=== PATIENT | male | born 1970 | race Caucasian/White ===

== ENCOUNTER 2019-07-07 14:56 | Inpatient (IN) | payer MEDICARE, MEDICAID ==
[~2019-07-07] VITALS: Ht 175.3 cm; Wt 147.6 kg
[2019-07-07 18:00] VITALS: BP 117/67
[2019-07-07] MEDS ORDERED: potassium Cl 20 mEq SR tablet PO PRN ×2 (18:15)
[2019-07-07] MEDS ORDERED: potassium Cl 20mEq/100mL bag 100 ML IV PRN ×2 (18:15)
[2019-07-07] MEDS ORDERED: potassium CL 10mEq/100ml bag 100 ML IV PRN ×2 (18:15)
[2019-07-07] MEDS ORDERED: midazolam 2 mg/2 ml injection IV ONE (18:15)
[2019-07-07] MEDS ORDERED: bisacodyl 10mg suppository rectal RC PRN (18:15)
[2019-07-07] MEDS: propofol 1000mg/100ml bottle 100 ML IV SCH (18:15)
[2019-07-07] MEDS ORDERED: ipratropium/albuterol 3ml nebule NEB PRN (18:15)
--- NOTE | 2019-07-07 18:20 | NUR ---
Patient in room CICU 2013. I have received report from Mg MERA and had the opportunity to ask questions and assume patient care. Patient recently arrived via [facility] and currently getting settled into room. Dr Rivera at bedside. New orders currently being reviewed. Will continue to monitor patient.
--- NOTE | 2019-07-07 18:27 | NUR ---
Problems reprioritized. Patient report given, questions answered & plan of care reviewed with Alma MERA.
[2019-07-07 18:51] LABS: ABG BASE EXCESS 4.2 mmol/L (-2.0-3.0); ABG HCO3 33.3 mmol/L (22.0-26.0); ABG OXYGEN SATURATION 95.3 % (95-98); ABG PH (T) 7.274 (7.350-7.450); FCOHb 0.2 % (0.5-1.5); FMetHb 0.5 % (0.3-1.12); FO2Hb 94.6 % (94-100); MINUTE VOLUME 9 L/min; PATIENT TEMPERATURE 37.7; PEEP 5 cm H2O; RESPIRATORY RATE 18 b/min; RESPIRATORY RATE (OBSERVED) 20 b/min; TIDAL VOLUME 450 mL
[2019-07-07 19:00] VITALS: BP 117/54
[2019-07-07] MEDS: CefTRIAXone 2gm/D5W 50ml 50 ML IV SCH (19:06)
[2019-07-07] MEDS: normal saline 1000ml 1,000 ML IV SCH (19:12)
[2019-07-07] MEDS: midazolam 100mg in NS 100ml 100 ML IV PRN (19:13)
[2019-07-07 19:18] LABS: BASOPHILS # (AUTO) 0.1 X10'3 (0-0.2); EOSINOPHILS % (AUTO) 0.3 % (0-6); HEMATOCRIT 38.9 % (42.0-52.0); HEMOGLOBIN 13.2 g/dl (14.0-17.9); LYMPHOCYTES # (AUTO) 0.7 X10'3 (1.1-4.8); LYMPHOCYTES % (AUTO) 5.7 % (21-51); MEAN CORPUSCULAR HEMOGLOBIN 30.8 PG (27.0-31.0); MEAN CORPUSCULAR HGB CONC 33.9 g/dL (33.0-36.5); MEAN CORPUSCULAR VOLUME 90.7 FL (78-98); MEAN PLATELET VOLUME 7.6 FL (7.4-10.4); MONOCYTES # (AUTO) 0.9 X10'3 (0-0.9); MONOCYTES % (AUTO) 6.7 % (2-12); NEUTROPHILS # (AUTO) 11.1 X10'3 (1.8-7.7); NEUTROPHILS % (AUTO) 86.3 % (42-75); PLATELET COUNT 300 X10'3 (140-440); RED BLOOD COUNT 4.29 X10'6 (4.70-6.10); RED CELL DISTRIBUTION WIDTH 14.1 % (11.5-14.5); WHITE BLOOD COUNT 12.8 X10'3 (4.5-11.0)
[2019-07-07] MEDS: FENTANYL-0.9 % NACL/PF 100 ML IV PRN (19:19)
[2019-07-07] MEDS ORDERED: LISI-600 PO (19:26)
[2019-07-07] MEDS ORDERED: METF500T PO (19:26)
[2019-07-07] MEDS ORDERED: HCTZ25T PO (19:26)
[2019-07-07] MEDS ORDERED: FLO0.4C PO (19:26)
[2019-07-07] MEDS ORDERED: TEST200V10 IM (19:26)
[2019-07-07] MEDS ORDERED: LIOT25TA6 PO (19:26)
[2019-07-07] MEDS ORDERED: SIMV-42 PO (19:26)
[2019-07-07] MEDS ORDERED: BECL7.3A INH (19:26)
[2019-07-07] MEDS ORDERED: METO1TAB25 PO (19:26)
[2019-07-07] MEDS ORDERED: SYN0.088T PO (19:26)
[2019-07-07 19:37] LABS: ALANINE AMINOTRANSFERASE 59 U/L (12-78); ALBUMIN/GLOBULIN RATIO 0.8 (1.1-1.5); ALKALINE PHOSPHATASE 89 IU/L (46-116); ANION GAP 5 (8-16); ASPARTATE AMINO TRANSFERASE 70 U/L (10-37); BILIRUBIN,TOTAL 0.5 MG/DL (0.1-1.0); BLOOD UREA NITROGEN 53 MG/DL (7-18); BUN/CREATININE RATIO 34.6 (5.4-32.0); CALCIUM 8.4 MG/DL (8.5-10.1); CHLORIDE 100 MMOL/L (99-107); CREATININE 1.53 MG/DL (0.60-1.10); GLUCOSE 317 MG/DL (70-104); MAGNESIUM 3.2 MG/DL (1.5-2.4); PHOSPHORUS 7.3 MG/DL (2.3-4.5); POTASSIUM 5.5 MMOL/L (3.5-5.1); SODIUM 140 MMOL/L (135-145); TOTAL CARBON DIOXIDE 35.1 MMOL/L (24-32); TOTAL PROTEIN 6.9 G/DL (6.4-8.2); TRIGLYCERIDES 561 MG/DL (20-135); eGFR 49 ML/MIN
[2019-07-07] MEDS ORDERED: iohexol 350MG/ML 100ml bottle IV ONE (19:41)
[2019-07-07 20:00] VITALS: BP 140/74
[2019-07-07] MEDS ORDERED: docusate sod 100mg capsule PO SCH (20:00)
--- NOTE | 2019-07-07 20:00 | NUR ---
Patient to CT with two RN's and RT. Patient monitored closely during procedure and back to room. Will continue to monitor.
[2019-07-07] MEDS: azithromycin/NS 500mg/250ml 250 ML IV SCH (20:41)
[2019-07-07] MEDS: famotidine/PF 10 mg/ml inj IV SCH (20:48)
[2019-07-07] MEDS: methylPREDNISolone sod succ 125mg/2ml vial IV SCH (20:48)
[2019-07-07] MEDS: ipratropium/albuterol 3ml nebule NEB SCH ×2 (20:55→22:51)
[2019-07-07 21:00] VITALS: BP 131/78
--- NOTE | 2019-07-07 21:00 | NUR ---
William Mcclellan PASSENGER TRAIN BRAKER at bedside, updated on current labs and color of GI output. No new orders at this time. Will continue to monitor.
[2019-07-07 21:19] LABS: TOTAL CELLS COUNTED 100
[2019-07-07 21:20] LABS: PLATELET ESTIMATE NORMAL
[2019-07-07] MEDS ORDERED: dextrose 50%-water 50ml dispensing syringe IV PRN ×2 (21:30)
[2019-07-07] MEDS ORDERED: insulin Lispro (HumaLOG) vial - multi-dose SQ SCH (21:30)
[2019-07-07] MEDS ORDERED: dextrose ORAL solution 15 GM/59 ML bottle PO PRN ×2 (21:30)
[2019-07-07] MEDS ORDERED: glucagon, human recombinant 1mg kit SUBCUT PRN (21:30)
[2019-07-07] MEDS: heparin, porcine 5000 units/ml vial SQ SCH (21:40)
[2019-07-07] MEDS: sennosides/docusate sodium tablet PO SCH (21:40)
[2019-07-07] MEDS: docusate sodium 100mg/10ml UD cup PO SCH (21:40)
[2019-07-07] MEDS: insulin regular, human vial - multi-dose SQ SCH (21:58)
[2019-07-07 22:00] VITALS: BP 132/66
[2019-07-07] MEDS: insulin glargine (Lantus) pen - multi-dose SQ SCH (22:00)
[2019-07-07 22:11] LABS: CLARITY,URINE CLOUDY (Clear); COLOR,URINE YELLOW (Yellow); GLUCOSE, URINE NEGATIVE (Neg); KETONES,URINE NEGATIVE (Neg); LEUKOCYTE ESTERASE ,URINE NEGATIVE (Neg); NITRITES, URINE NEGATIVE (Neg); OCCULT BLOOD,URINE LARGE (Neg); PROTEIN,URINE TRACE mg/dl (Neg); UROBILINOGEN,URINE 0.2 E.U/dL (0.2-1.0)
[2019-07-07 22:18] LABS: UA COLLECTION TYPE FOLEY CATH
[2019-07-07 22:19] LABS: BACTERIA,URINE NONE SEEN /HPF (Neg); RBC,URINE 50-100 /HPF (0-2); WBC,URINE 0-4 /HPF (0-4)
[2019-07-07 22:20] LABS: MUCUS STRANDS FEW /LPF (Neg); SQUAMOUS EPITHELIAL CELL,UR FEW /LPF (FEW); URIC ACID CRYSTALS 4+ /HPF (NEGATIVE)
[2019-07-07 22:28] LABS: HEMOGLOBIN A1C 7.8 % (4.5-6.2)
[2019-07-07 22:46] LABS: OXYGEN SATURATION (MIXED VEN) 83.9 % (60-80); PO2 MIXED VENOUS (TEMP COR) 52.6 mmHg (35-46)
[2019-07-07 23:00] VITALS: BP 136/67
[2019-07-08] VITALS (24 sets, daily range): BP systolic 111–148; BP diastolic 53–86
[2019-07-08] MEDS: methylPREDNISolone sod succ 125mg/2ml vial IV SCH ×4 (02:16→19:45)
[2019-07-08] MEDS: FENTANYL-0.9 % NACL/PF 100 ML IV PRN (02:17)
[2019-07-08] MEDS: insulin regular, human vial - multi-dose SQ SCH ×4 (02:19→20:22)
[2019-07-08 02:40] LABS: BASOPHILS # (AUTO) 0.2 X10'3 (0-0.2); BASOPHILS % (AUTO) 1.1 % (0-1); EOSINOPHILS % (AUTO) 0 % (0-6); HEMATOCRIT 39.5 % (42.0-52.0); HEMOGLOBIN 13.3 g/dl (14.0-17.9); LYMPHOCYTES # (AUTO) 0.5 X10'3 (1.1-4.8); LYMPHOCYTES % (AUTO) 2.2 % (21-51); MEAN CORPUSCULAR HEMOGLOBIN 30.4 PG (27.0-31.0); MEAN CORPUSCULAR HGB CONC 33.8 g/dL (33.0-36.5); MEAN PLATELET VOLUME 7.8 FL (7.4-10.4); MONOCYTES # (AUTO) 0.8 X10'3 (0-0.9); MONOCYTES % (AUTO) 3.6 % (2-12); NEUTROPHILS # (AUTO) 19.8 X10'3 (1.8-7.7); NEUTROPHILS % (AUTO) 93.1 % (42-75); PLATELET COUNT 261 X10'3 (140-440); RED BLOOD COUNT 4.39 X10'6 (4.70-6.10); RED CELL DISTRIBUTION WIDTH 14.4 % (11.5-14.5); WHITE BLOOD COUNT 21.3 X10'3 (4.5-11.0)
[2019-07-08 02:50] LABS: ALANINE AMINOTRANSFERASE 71 U/L (12-78); ALBUMIN 2.8 G/DL (3.4-5.0); ALBUMIN/GLOBULIN RATIO 0.8 (1.1-1.5); ALKALINE PHOSPHATASE 88 IU/L (46-116); ANION GAP 2 (8-16); ASPARTATE AMINO TRANSFERASE 82 U/L (10-37); BILIRUBIN,TOTAL 0.6 MG/DL (0.1-1.0); BLOOD UREA NITROGEN 50 MG/DL (7-18); BUN/CREATININE RATIO 38.8 (5.4-32.0); CALCIUM 8.2 MG/DL (8.5-10.1); CHLORIDE 102 MMOL/L (99-107); CREATININE 1.29 MG/DL (0.60-1.10); GLUCOSE 290 MG/DL (70-104); MAGNESIUM 2.9 MG/DL (1.5-2.4); PHOSPHORUS 4.7 MG/DL (2.3-4.5); POTASSIUM 5.6 MMOL/L (3.5-5.1); SODIUM 140 MMOL/L (135-145); TOTAL PROTEIN 6.5 G/DL (6.4-8.2); TRIGLYCERIDES 378 MG/DL (20-135); eGFR 60 ML/MIN
[2019-07-08] MEDS: ipratropium/albuterol 3ml nebule NEB SCH ×6 (03:14→23:18)
[2019-07-08] MEDS: midazolam 100mg in NS 100ml 100 ML IV PRN (03:17)
[2019-07-08 03:25] LABS: ABG BASE EXCESS 4.3 mmol/L (-2.0-3.0); ABG HCO3 31.2 mmol/L (22.0-26.0); ABG OXYGEN SATURATION 96.6 % (95-98); ABG PCO2 (T) 58.8 mmHg (35.0-45.0); ABG PH (T) 7.348 (7.350-7.450); ABG PO2 (T) 91.6 mmHg (83-108); ALLEN'S TEST Positive; FCOHb 0.8 % (0.5-1.5); FMetHb 0.2 % (0.3-1.12); FO2Hb 95.6 % (94-100); MINUTE VOLUME 10 L/min; PATIENT TEMPERATURE 38.1; PEEP 10 cm H2O; RESPIRATORY RATE 18 b/min; RESPIRATORY RATE (OBSERVED) 24 b/min; TIDAL VOLUME 450 mL; TOTAL HEMOGLOBIN 14.2 G/dl (14.0-17.9)
[2019-07-08 03:49] LABS: TOTAL CELLS COUNTED 100
[2019-07-08 03:51] LABS: PLATELET ESTIMATE NORMAL
[2019-07-08 03:52] LABS: ANISOCYTOSIS FEW; LARGE PLATELETS FEW; POLYCHROMASIA FEW
--- NOTE | 2019-07-08 06:18 | NUR ---
Problems reprioritized. Patient report given, questions answered & plan of care reviewed with Derrick MERA.
[2019-07-08] MEDS: docusate sodium 100mg/10ml UD cup PO SCH ×2 (07:33→19:45)
[2019-07-08] MEDS: azithromycin/NS 500mg/250ml 250 ML IV SCH (07:33)
[2019-07-08] MEDS: famotidine/PF 10 mg/ml inj IV SCH ×2 (07:37→19:45)
[2019-07-08] MEDS: heparin, porcine 5000 units/ml vial SQ SCH ×2 (07:37→19:44)
[2019-07-08] MEDS: normal saline 1000ml 1,000 ML IV SCH ×2 (07:40→20:55)
[2019-07-08 07:49] LABS: PARTIAL THROMBOPLASTIN TIME 25 SECONDS (22-32)
[2019-07-08] MEDS ORDERED: acetaminophen 325mg tablet PO PRN ×2 (08:00)
[2019-07-08] MEDS: acetaminophen 325mg tablet PO PRN ×3 (08:46→19:45)
[2019-07-08] MEDS: CefTRIAXone 2gm/D5W 50ml 50 ML IV SCH (08:49)
[2019-07-08] MEDS ORDERED: METO-384 PO (12:05)
[2019-07-08] MEDS ORDERED: LISI10TA4 PO (12:09)
[2019-07-08] MEDS ORDERED: LEVO125T8 PO (12:09)
[2019-07-08] MEDS ORDERED: HYDR25TA4 PO (12:10)
[2019-07-08] MEDS ORDERED: IPRA3AMP31 PO (12:12)
--- NOTE | 2019-07-08 12:24 | NUR ---
TF/DM consult: Pt admitted for acute and chronic respiratory failure and has hx of Sudheer's thyroiditis. Hx of meth and cannabinoids use, per MD note. Pt currently intubated and sedated. Pt HgbA1c 7.8, will need DM education on extubation when appropriate. Pt LBM 07/07. Pt TG currently 378, MD is aware, pending med rec. Pt is a transfer from [facility], where he received Glucerna at 45ml/hr, per RN. Per MD, TF to start today, recs below. Will continue to monitor. Recommendation: 1. Continuous Vital HP to start at 35ml/hr advance by 20ml q 8 hrs to goal rate of 115ml/hr, to provide total volume of 2760ml, 2760 calories, 242g protein and 2318ml water. 2. Water flush 200ml q 4 hrs 3. PALB q /; daily wts 4. Monitor TF tolerance 5. Routine bowel care 6. Diet advancement to Heart Healthy and Carb controlled diet as medically indicated once extubated Addendum: 07/08/19 at 1225 by Wing Jennifer MERAZ Amended: Links added. Addendum: 07/08/19 at [address] RD Approved
[2019-07-08] MEDS: propofol 1000mg/100ml bottle 100 ML IV SCH (13:08)
[2019-07-08] MEDS ORDERED: vancomycin/NS 1 GM ADD-VANTAGE 250 ML IV ONE (14:55)
--- NOTE | 2019-07-08 14:57 | NUR ---
Called Dr. Rivera to report critical positive blood culture from PICC line aerobic bottle gram + cocci in clusters, temp of 38.8 despite tylenol, received orders for 1 gram of vancomycin now. Also received order to pull PICC line and have new PICC line placed, paged PICC Nurse. Also discussed patient in atrial fibrillation in the 130-150s when agitated, requested rate control medication of amiodarone or cardizem, states not at this time, use sedation. Discussed if wants precedex and he stated no keep versed and Fentanyl at this time. Will continue to monitor.
--- NOTE | 2019-07-08 18:30 | NUR ---
Patient in room CICU 2013. I have received report from Maria and had the opportunity to ask questions and assume patient care.
--- NOTE | 2019-07-08 18:39 | NUR ---
Problems reprioritized. Patient report given, questions answered & plan of care reviewed with Alma MERA.
[2019-07-08] MEDS: TESTOSTERONE CYPIONATE 200 MG/ML VIAL IM SCH (18:52)
[2019-07-08] MEDS: lactobacillus rhamnosus 10,000 MMU CELLS/CAPSULE PO SCH (19:44)
[2019-07-08] MEDS: sennosides/docusate sodium tablet PO SCH (20:15)
[2019-07-08] MEDS: insulin glargine (Lantus) pen - multi-dose SQ SCH (20:19)
[2019-07-08] MEDS: mineral oil/petrolatum ophthal oint EACHEYE SCH (20:20)
[2019-07-08] MEDS ORDERED: atorvastatin 10mg tablet PO SCH (21:00)
[2019-07-08] MEDS: budesonide 0.5mg/2ml UD nebule IH SCH (23:18)
[2019-07-09] VITALS (24 sets, daily range): BP systolic 114–168; BP diastolic 47–97
[2019-07-09] MEDS ORDERED: metoprolol tartrate 1mg/ml inj IV ONE ×2 (00:40→04:25)
--- NOTE | 2019-07-09 00:45 | NUR ---
William Mcclellan APRN notified of patient increased HR up to 156 A Fib. TORBV for Metoprolol 5mg IV Now, repeat in 15 min if patient HR does not sustain in the 120's or below.
[2019-07-09] MEDS: mineral oil/petrolatum ophthal oint EACHEYE SCH ×4 (01:54→20:00)
[2019-07-09] MEDS: midazolam 100mg in NS 100ml 100 ML IV PRN (01:55)
[2019-07-09] MEDS: methylPREDNISolone sod succ 125mg/2ml vial IV SCH ×4 (01:55→20:29)
[2019-07-09] MEDS: insulin regular, human vial - multi-dose SQ SCH ×4 (02:11→20:35)
[2019-07-09 02:26] LABS: BASOPHILS % (AUTO) 0 % (0-1); EOSINOPHILS % (AUTO) 0 % (0-6); HEMATOCRIT 36.4 % (42.0-52.0); HEMOGLOBIN 12.3 g/dl (14.0-17.9); LYMPHOCYTES # (AUTO) 0.7 X10'3 (1.1-4.8); LYMPHOCYTES % (AUTO) 7.7 % (21-51); MEAN CORPUSCULAR HGB CONC 33.9 g/dL (33.0-36.5); MEAN CORPUSCULAR VOLUME 91.5 FL (78-98); MEAN PLATELET VOLUME 7.8 FL (7.4-10.4); MONOCYTES # (AUTO) 0.4 X10'3 (0-0.9); MONOCYTES % (AUTO) 4.5 % (2-12); NEUTROPHILS # (AUTO) 8.5 X10'3 (1.8-7.7); NEUTROPHILS % (AUTO) 87.8 % (42-75); PLATELET COUNT 227 X10'3 (140-440); RED BLOOD COUNT 3.98 X10'6 (4.70-6.10); RED CELL DISTRIBUTION WIDTH 14.1 % (11.5-14.5); WHITE BLOOD COUNT 9.7 X10'3 (4.5-11.0)
[2019-07-09 02:51] LABS: ALANINE AMINOTRANSFERASE 73 U/L (12-78); ALBUMIN 2.5 G/DL (3.4-5.0); ALBUMIN/GLOBULIN RATIO 0.7 (1.1-1.5); ALKALINE PHOSPHATASE 73 IU/L (46-116); ANION GAP 2 (8-16); ASPARTATE AMINO TRANSFERASE 75 U/L (10-37); BILIRUBIN,TOTAL 0.5 MG/DL (0.1-1.0); BLOOD UREA NITROGEN 47 MG/DL (7-18); BUN/CREATININE RATIO 37.3 (5.4-32.0); CALCIUM 8.4 MG/DL (8.5-10.1); CHLORIDE 106 MMOL/L (99-107); CREATININE 1.26 MG/DL (0.60-1.10); GLUCOSE 316 MG/DL (70-104); PHOSPHORUS 2.9 MG/DL (2.3-4.5); POTASSIUM 4.9 MMOL/L (3.5-5.1); SODIUM 142 MMOL/L (135-145); TOTAL CARBON DIOXIDE 33.7 MMOL/L (24-32); eGFR 62 ML/MIN
[2019-07-09 03:14] LABS: TOTAL CELLS COUNTED 100
[2019-07-09 03:15] LABS: PLATELET ESTIMATE NORMAL
[2019-07-09] MEDS: ipratropium/albuterol 3ml nebule NEB SCH ×5 (03:39→19:46)
[2019-07-09] MEDS: FENTANYL-0.9 % NACL/PF 100 ML IV PRN (03:52)
[2019-07-09 03:56] LABS: ABG BASE EXCESS 4.7 mmol/L (-2.0-3.0); ABG HCO3 31.2 mmol/L (22.0-26.0); ABG OXYGEN SATURATION 93.2 % (95-98); ABG PH (T) 7.355 (7.350-7.450); ABG PO2 (T) 76.4 mmHg (83-108); ALLEN'S TEST Positive; FCOHb 0.8 % (0.5-1.5); FMetHb 0.2 % (0.3-1.12); FO2Hb 92.3 % (94-100); MINUTE VOLUME 10 L/min; PATIENT TEMPERATURE 38.4; PEEP 5 cm H2O; RESPIRATORY RATE 18 b/min; RESPIRATORY RATE (OBSERVED) 19 b/min; TIDAL VOLUME 450 mL; TOTAL HEMOGLOBIN 13.5 G/dl (14.0-17.9)
[2019-07-09] MEDS: acetaminophen 325mg tablet PO PRN (04:00)
--- NOTE | 2019-07-09 04:21 | NUR ---
This RN called and spoke with William Mcclellan APRN concerned about pt HR 135 to 150's. TORBV FOR 5 MG METOPROLOL IV PUSH NOW.
--- NOTE | 2019-07-09 05:45 | NUR ---
Patient having frequent coughing, Alma MERA noticed ET tube 20 at the lip. Pt has apparently coughed his tube out, respiratory therapy notified. Respiratory Therapy in pt room.
--- NOTE | 2019-07-09 05:49 | NUR ---
Respiratory Therapy to pt room advanced ET tube to 24 at the gum line.
--- NOTE | 2019-07-09 06:38 | NUR ---
Care assumed. Handoff received by out going RN. Midazolam infusion handed off at 8ml/hr but found to be infusing at 7mls/hr. Pt VSS with RASS-3. Will continue to monitor.
[2019-07-09] MEDS: budesonide 0.5mg/2ml UD nebule IH SCH ×2 (07:19→19:46)
[2019-07-09] MEDS ORDERED: LIOthyronine 25mcg tablet PO SCH (08:00)
[2019-07-09] MEDS ORDERED: ipratropium/albuterol 3ml nebule IH SCH (08:00)
[2019-07-09] MEDS ORDERED: metoprolol succinate 25mg (24-HOUR) SR. Tablet PO SCH (08:00)
[2019-07-09] MEDS ORDERED: levoTHYROXINE 125mcg tablet PO SCH (08:00)
[2019-07-09] MEDS: propofol 1000mg/100ml bottle 100 ML IV SCH (08:21)
[2019-07-09] MEDS: famotidine/PF 10 mg/ml inj IV SCH ×2 (08:37→20:29)
[2019-07-09] MEDS: heparin, porcine 5000 units/ml vial SQ SCH ×2 (08:39→20:30)
[2019-07-09] MEDS: docusate sodium 100mg/10ml UD cup PO SCH (08:40)
[2019-07-09] MEDS: CefTRIAXone 2gm/D5W 50ml 50 ML IV SCH (08:40)
[2019-07-09] MEDS: tamsulosin 0.4mg capsule PO SCH (08:40)
[2019-07-09] MEDS: azithromycin/NS 500mg/250ml 250 ML IV SCH (08:41)
[2019-07-09] MEDS: normal saline 1000ml 1,000 ML IV SCH ×2 (08:43→22:32)
[2019-07-09] MEDS: lactobacillus rhamnosus 10,000 MMU CELLS/CAPSULE PO SCH ×2 (08:52→20:29)
[2019-07-09] MEDS ORDERED: metoprolol tartrate 25mg tablet PO SCH (11:11)
[2019-07-09] MEDS ORDERED: acetaminophen 325mg tablet OGT PRN ×3 (11:19→11:20)
[2019-07-09] MEDS ORDERED: dextrose ORAL solution 15 GM/59 ML bottle OGT PRN ×2 (11:20→11:21)
[2019-07-09] MEDS ORDERED: potassium Cl 20 mEq SR tablet OGT PRN ×2 (11:23)
[2019-07-09] MEDS ORDERED: racepinephrine 11.25mg/0.5ml nebule NEB PRN (14:40)
[2019-07-09] MEDS ORDERED: ipratropium/albuterol 3ml nebule NEB PRN (14:40)
--- NOTE | 2019-07-09 15:47 | NUR ---
Pt extubated at 1520 per MD Rivera orders. Pt passed weaning parameters of RSBI 38 and NIF -24 and VC 800. Pt following commands. Upon extubation, pt HRs 150-160s(MD aware on pt HRs and no change from pre extubation), RR 27 and SpO2 84% on 6L NC, attempted to place partial rebreather on pt and he became verbally abusive and combative and hit mask away from nurse. Placed back on 6L NC with sats in 86. RT brought to bedside.Pt remains alert and requesting to speak with . called twice and message left for . Will continue to monitor closely.
--- NOTE | 2019-07-09 16:26 | NUR ---
arrived to bedside. Pt amendable to partial rebreather. Sats 95%, HR remains 150s, BPs 140s/80s. Pt more cooperative with present. Will continue to monitor closely.
--- NOTE | 2019-07-09 16:59 | NUR ---
MD madden brought to bedside and aware of HR in the 150s. Addendum: 07/09/19 at 1702 by Nicholas Jung RN Amended: Links added.
--- NOTE | 2019-07-09 19:00 | NUR ---
sr technical sales consultant present at bedside Addendum: 07/09/19 at 1927 by Mindi Cooper RN error wrong pt entry
--- NOTE | 2019-07-09 19:19 | NUR ---
Patient in room ICU 2042. I have received report and had the opportunity to ask questions and assume patient care.
--- NOTE | 2019-07-09 19:27 | NUR ---
josé miguel quevedo use of home cpap.
--- NOTE | 2019-07-09 20:00 | NUR ---
josé miguel francisco aware of pt heart rate being in the 140s-160's. pt is asymptomatic at this time. no new orders received
[2019-07-09] MEDS: sennosides/docusate sodium tablet OGT SCH (20:28)
[2019-07-09] MEDS: metoprolol tartrate 25mg tablet OGT SCH (20:28)
[2019-07-09] MEDS: docusate sodium 100mg/10ml UD cup OGT SCH (20:29)
[2019-07-09] MEDS: atorvastatin 10mg tablet OGT SCH (20:29)
--- NOTE | 2019-07-09 20:30 | NUR ---
pt tolerating ice chips and water, pt given evening medications. pt tolerated swallowing po meds well will continue to monitor.
[2019-07-09] MEDS: insulin glargine (Lantus) pen - multi-dose SQ SCH (20:36)
[2019-07-09] MEDS: ondansetron/PF 4mg/2ml inj IV PRN (22:41)
--- NOTE | 2019-07-09 23:04 | NUR ---
pt requested more water. pt instructed to take small slow sips. pt disregarded instructions and reported nausea saying "i'm about to vomit". pt removed from bipap. and placed back on home cpap. zofran administered iv. pt does not have the physical ability to remove bipap by himself at this time if vomiting occurs. will be giving pt oral swabs to wet mouth if pt requests instead of water. will continue to monitor.
[2019-07-10] VITALS (24 sets, daily range): BP systolic 114–160; BP diastolic 59–110
[2019-07-10] MEDS: mineral oil/petrolatum ophthal oint EACHEYE SCH ×4 (00:54→20:20)
--- NOTE | 2019-07-10 01:08 | NUR ---
pt heart rate remains in the 130-150 range. pt has had the bipap on and his 02 sat is between 93-95% and the pt heart rate has not corrected. pt is asymptomatic at this time. josé miguel francisco notified. no changes or new orders received
[2019-07-10] MEDS: methylPREDNISolone sod succ 125mg/2ml vial IV SCH ×4 (01:41→20:19)
[2019-07-10] MEDS: insulin Lispro (HumaLOG) vial - multi-dose SQ SCH ×3 (02:10→19:37)
--- NOTE | 2019-07-10 02:15 | NUR ---
pt is engaging in staff splitting and manipulating behavior. pt continues to ask for water. pt given mouth swabs due to reporting nausea after the last water intake. pt is on bipap and is unable to remove the mask if vomiting occurs. pt educated on the aspiration risks and verbalizes understanding. pt then asks for water and was re-educated. pt then says "well if i don't get water i'm going to throw up." pt offered mouth swabs again and refused.
[2019-07-10] MEDS: ipratropium/albuterol 3ml nebule NEB SCH ×4 (02:58→20:44)
[2019-07-10] MEDS: propofol 1000mg/100ml bottle 100 ML IV SCH ×2 (03:34→22:47)
[2019-07-10] MEDS ORDERED: proCHLORperazine 10 MG/2 ml inj IV ONE (03:40)
--- NOTE | 2019-07-10 03:50 | NUR ---
pt continues to ask staff for water and saying he is going to vomit. md aware. compazine ordered and administered per order
[2019-07-10 05:00] LABS: BASOPHILS % (AUTO) 0.1 % (0-1); EOSINOPHILS % (AUTO) 0 % (0-6); HEMATOCRIT 39.9 % (42.0-52.0); HEMOGLOBIN 13.6 g/dl (14.0-17.9); LYMPHOCYTES # (AUTO) 0.9 X10'3 (1.1-4.8); LYMPHOCYTES % (AUTO) 6.9 % (21-51); MEAN CORPUSCULAR HEMOGLOBIN 30.8 PG (27.0-31.0); MEAN CORPUSCULAR VOLUME 90.5 FL (78-98); MONOCYTES # (AUTO) 0.5 X10'3 (0-0.9); MONOCYTES % (AUTO) 3.8 % (2-12); NEUTROPHILS # (AUTO) 11.9 X10'3 (1.8-7.7); NEUTROPHILS % (AUTO) 89.2 % (42-75); PLATELET COUNT 211 X10'3 (140-440); RED BLOOD COUNT 4.41 X10'6 (4.70-6.10); RED CELL DISTRIBUTION WIDTH 14.3 % (11.5-14.5); WHITE BLOOD COUNT 13.4 X10'3 (4.5-11.0)
[2019-07-10 05:14] LABS: ALANINE AMINOTRANSFERASE 219 U/L (12-78); ALBUMIN/GLOBULIN RATIO 0.8 (1.1-1.5); ALKALINE PHOSPHATASE 80 IU/L (46-116); ANION GAP 6 (8-16); ASPARTATE AMINO TRANSFERASE 190 U/L (10-37); BILIRUBIN,TOTAL 0.9 MG/DL (0.1-1.0); BLOOD UREA NITROGEN 47 MG/DL (7-18); BUN/CREATININE RATIO 41.6 (5.4-32.0); CALCIUM 8.8 MG/DL (8.5-10.1); CHLORIDE 103 MMOL/L (99-107); CREATININE 1.13 MG/DL (0.60-1.10); GLUCOSE 274 MG/DL (70-104); MAGNESIUM 2.6 MG/DL (1.5-2.4); PHOSPHORUS 4.4 MG/DL (2.3-4.5); SODIUM 142 MMOL/L (135-145); TOTAL CARBON DIOXIDE 33.2 MMOL/L (24-32); TOTAL PROTEIN 6.7 G/DL (6.4-8.2); eGFR 70 ML/MIN
--- NOTE | 2019-07-10 06:00 | NUR ---
Patient in room ICU 2042. I have received report from Yonatan MERA and had the opportunity to ask questions and assume patient care.
[2019-07-10 06:08] LABS: PREALBUMIN 51.3 MG/DL (19-36)
[2019-07-10 06:52] LABS: TOTAL CELLS COUNTED 100
[2019-07-10 06:57] LABS: PLATELET ESTIMATE NORMAL
[2019-07-10] MEDS: budesonide 0.5mg/2ml UD nebule IH SCH ×2 (07:39→20:44)
[2019-07-10] MEDS: famotidine/PF 10 mg/ml inj IV SCH ×2 (08:59→20:20)
[2019-07-10] MEDS: heparin, porcine 5000 units/ml vial SQ SCH ×2 (09:07→20:20)
[2019-07-10] MEDS: tamsulosin 0.4mg capsule PO SCH ×2 (09:22→09:25)
[2019-07-10] MEDS: levoTHYROXINE 125mcg tablet OGT SCH (09:23)
[2019-07-10] MEDS: lactobacillus rhamnosus 10,000 MMU CELLS/CAPSULE PO SCH ×2 (09:24→20:20)
[2019-07-10] MEDS: metoprolol tartrate 25mg tablet OGT SCH (09:24)
[2019-07-10] MEDS: docusate sodium 100mg/10ml UD cup OGT SCH ×2 (09:25→20:20)
[2019-07-10] MEDS: ondansetron/PF 4mg/2ml inj IV PRN ×3 (09:58→17:06)
[2019-07-10] MEDS: fentaNYL/PF 50MCG/1 ML 2ML syringe IV PRN ×2 (09:59→18:55)
[2019-07-10] MEDS: LIOthyronine 25mcg tablet OGT SCH (10:32)
--- NOTE | 2019-07-10 11:51 | NUR ---
F/u: Pt extubated 07/09 pending SP BSS for diet advancement. LBM 07/07 small and previously tolerating TF as advancing to goal at 75ml/hr. First PALB 51.3 likely error given pt size, prior intubation, nutrition not at goal, and renal labs continuing to improve. TF/DM consult: Pt admitted for acute and chronic respiratory failure and has hx of Sudheer's thyroiditis. Hx of meth and cannabinoids use, per MD note. Pt currently intubated and sedated. Pt HgbA1c 7.8, will need DM education on extubation when appropriate. Pt LBM 07/07. Pt TG currently 378, MD is aware, pending med rec. Pt is a transfer from [facility], where he received Glucerna at 45ml/hr, per RN. Per MD, TF to start today, recs below. Will continue to monitor. Recommendation: 1. Diet advancement to Heart Healthy and Carb controlled diet as medically indicated 2. routine bowel care 3. wt per rx 4. DM ed once appropriate and stable prior to d/c Addendum: 07/10/19 at [address] Amended: Links added.
[2019-07-10] MEDS: normal saline 1000ml 1,000 ML IV SCH (12:42)
[2019-07-10] MEDS: metoprolol succinate 25mg (24-HOUR) SR. Tablet PO SCH (13:24)
--- NOTE | 2019-07-10 18:30 | NUR ---
I have received report and assumed care of pt. family at bedside, assessment complete.
--- NOTE | 2019-07-10 18:37 | NUR ---
Problems reprioritized. Patient report given, questions answered & plan of care reviewed with BG RN.
--- NOTE | 2019-07-10 20:05 | NUR ---
hs cares completed pt tolerated well. frequent turning to maintain skin integrity
[2019-07-10] MEDS: atorvastatin 10mg tablet OGT SCH (21:06)
[2019-07-10] MEDS: sennosides/docusate sodium tablet OGT SCH (21:06)
[2019-07-10] MEDS: insulin glargine (Lantus) pen - multi-dose SQ SCH (21:10)
[2019-07-10] MEDS ORDERED: VANCOMYCIN LEVEL IV ONE (23:30)
--- NOTE | 2019-07-10 23:55 | NUR ---
no changes in condition noted
[2019-07-11] VITALS (24 sets, daily range): BP systolic 119–164; BP diastolic 65–106
[2019-07-11] MEDS: mineral oil/petrolatum ophthal oint EACHEYE SCH (02:00)
[2019-07-11] MEDS: methylPREDNISolone sod succ 125mg/2ml vial IV SCH ×2 (02:18→07:42)
[2019-07-11] MEDS: normal saline 1000ml 1,000 ML IV SCH ×2 (02:18→04:44)
[2019-07-11] MEDS: ipratropium/albuterol 3ml nebule NEB SCH ×4 (03:26→20:56)
--- NOTE | 2019-07-11 03:34 | NUR ---
report given to rec rn plan of care noted
--- NOTE | 2019-07-11 03:45 | NUR ---
Patient in room ICU 2042. I have received report from RILEY RN and had the opportunity to ask questions and assume patient care.
--- NOTE | 2019-07-11 04:14 | NUR ---
Weight on Amor bed showing 133 kg with weight in chart noted at 173 on admit. Admit weight more likely reality than current 133 noted. The 133 is charted for future comparison weight fluctuations, will try to zero bed the next time he is up.
--- NOTE | 2019-07-11 04:45 | NUR ---
Pt fussing with Bipap mask and repeatedly asking for ice chips - swapped him over to his home CPAP at 4L, tolerating well.
[2019-07-11 05:13] LABS: BASOPHILS % (AUTO) 0.2 % (0-1); EOSINOPHILS % (AUTO) 0 % (0-6); HEMATOCRIT 40.3 % (42.0-52.0); HEMOGLOBIN 13.5 g/dl (14.0-17.9); LYMPHOCYTES # (AUTO) 1.5 X10'3 (1.1-4.8); LYMPHOCYTES % (AUTO) 8.4 % (21-51); MEAN CORPUSCULAR HEMOGLOBIN 30.1 PG (27.0-31.0); MEAN CORPUSCULAR HGB CONC 33.6 g/dL (33.0-36.5); MEAN CORPUSCULAR VOLUME 89.7 FL (78-98); MEAN PLATELET VOLUME 7.9 FL (7.4-10.4); MONOCYTES # (AUTO) 1.1 X10'3 (0-0.9); NEUTROPHILS # (AUTO) 14.8 X10'3 (1.8-7.7); NEUTROPHILS % (AUTO) 85.4 % (42-75); PLATELET COUNT 242 X10'3 (140-440); RED CELL DISTRIBUTION WIDTH 13.9 % (11.5-14.5); WHITE BLOOD COUNT 17.4 X10'3 (4.5-11.0)
[2019-07-11] MEDS: HYDROcodone/acetaminophen 10/325mg tab PO PRN (05:13)
[2019-07-11 05:28] LABS: ALANINE AMINOTRANSFERASE 241 U/L (12-78); ALBUMIN 2.7 G/DL (3.4-5.0); ALBUMIN/GLOBULIN RATIO 0.8 (1.1-1.5); ALKALINE PHOSPHATASE 76 IU/L (46-116); ANION GAP 5 (8-16); ASPARTATE AMINO TRANSFERASE 128 U/L (10-37); BILIRUBIN,TOTAL 1.1 MG/DL (0.1-1.0); BLOOD UREA NITROGEN 44 MG/DL (7-18); BUN/CREATININE RATIO 47.8 (5.4-32.0); CALCIUM 8.7 MG/DL (8.5-10.1); CHLORIDE 101 MMOL/L (99-107); CREATININE 0.92 MG/DL (0.60-1.10); GLUCOSE 219 MG/DL (70-104); MAGNESIUM 2.2 MG/DL (1.5-2.4); PHOSPHORUS 3.6 MG/DL (2.3-4.5); POTASSIUM 5.5 MMOL/L (3.5-5.1); SODIUM 139 MMOL/L (135-145); TOTAL CARBON DIOXIDE 32.6 MMOL/L (24-32); eGFR 89 ML/MIN
--- NOTE | 2019-07-11 06:11 | NUR ---
Problems reprioritized. Patient report given, questions answered & plan of care reviewed with SAMARIA Candelario.
--- NOTE | 2019-07-11 06:27 | NUR ---
Patient in room ICU 2042. I have received report from SAMARIA Roland and had the opportunity to ask questions and assume patient care.
[2019-07-11 07:00] LABS: TOTAL CELLS COUNTED 100
[2019-07-11 07:01] LABS: ANISOCYTOSIS 1+; LARGE PLATELETS FEW; PLATELET ESTIMATE NORMAL
[2019-07-11] MEDS: lactobacillus rhamnosus 10,000 MMU CELLS/CAPSULE PO SCH ×2 (07:42→20:44)
[2019-07-11] MEDS: levoTHYROXINE 125mcg tablet OGT SCH (07:42)
[2019-07-11] MEDS: docusate sodium 100mg/10ml UD cup OGT SCH ×2 (07:42→20:43)
[2019-07-11] MEDS: famotidine/PF 10 mg/ml inj IV SCH ×2 (07:42→20:44)
[2019-07-11] MEDS: heparin, porcine 5000 units/ml vial SQ SCH ×2 (07:43→20:44)
[2019-07-11] MEDS: metoprolol succinate 25mg (24-HOUR) SR. Tablet PO SCH (07:43)
[2019-07-11] MEDS: budesonide 0.5mg/2ml UD nebule IH SCH ×2 (08:42→20:56)
[2019-07-11] MEDS: ondansetron/PF 4mg/2ml inj IV PRN ×2 (08:44→19:26)
[2019-07-11] MEDS: LIOthyronine 25mcg tablet OGT SCH (08:44)
[2019-07-11] MEDS: insulin Lispro (HumaLOG) vial - multi-dose SQ SCH ×3 (08:47→20:45)
--- NOTE | 2019-07-11 12:13 | NUR ---
reassessment: Pt PO 75% first clear liquids meal; okay to have regular solids per SP but pt requests clear liquids to 'take it slow' per RN today. LBM 07/07 receiving routine colace and senna. New bed scale wt 133kg compared to 173 kg previous; likely error but will follow subsequent bed scale wts to more accurately assess. Will monitor for diet advancement and additional protein needs s/p extubation. Will need DM ed once stable prior to d/c. Recommendation: 1. Diet advancement to Heart Healthy and Carb controlled diet as medically indicated per SP/MD 2. routine bowel care 3. wt per rx 4. monitor for ONS needs as diet advances 5. DM ed once appropriate and stable prior to d/c Addendum: 07/11/19 at [address] Amended: Links added.
[2019-07-11] MEDS: methylPREDNISolone sod succ/PF 40mg inj. IV SCH ×2 (14:10→20:44)
--- NOTE | 2019-07-11 18:29 | NUR ---
Problems reprioritized. Patient report given, questions answered & plan of care reviewed with SAMARIA Stone.
--- NOTE | 2019-07-11 18:30 | NUR ---
Patient in room ICU 2042. I have received report from SAMARIA Candelario and had the opportunity to ask questions and assume patient care.
[2019-07-11] MEDS: atorvastatin 10mg tablet OGT SCH (20:44)
[2019-07-11] MEDS: sennosides/docusate sodium tablet OGT SCH (20:44)
[2019-07-11] MEDS: insulin glargine (Lantus) pen - multi-dose SQ SCH (20:46)
[2019-07-11] MEDS ORDERED: acetaminophen 325mg tablet PO PRN ×3 (20:55→20:56)
[2019-07-11] MEDS ORDERED: dextrose ORAL solution 15 GM/59 ML bottle PO PRN ×2 (20:56)
[2019-07-11] MEDS ORDERED: potassium Cl 20 mEq SR tablet PO PRN ×2 (20:57→20:58)
[2019-07-11] MEDS: sennosides/docusate sodium tablet PO SCH (21:00)
[2019-07-11] MEDS: atorvastatin 10mg tablet PO SCH (21:00)
[2019-07-12] VITALS (15 sets, daily range): BP systolic 101–140; BP diastolic 67–101
[2019-07-12] MEDS: methylPREDNISolone sod succ/PF 40mg inj. IV SCH ×4 (02:08→19:12)
[2019-07-12 02:56] LABS: ALANINE AMINOTRANSFERASE 188 U/L (12-78); ALBUMIN 2.8 G/DL (3.4-5.0); ALBUMIN/GLOBULIN RATIO 0.8 (1.1-1.5); ALKALINE PHOSPHATASE 79 IU/L (46-116); ANION GAP 6 (8-16); ASPARTATE AMINO TRANSFERASE 53 U/L (10-37); BLOOD UREA NITROGEN 36 MG/DL (7-18); BUN/CREATININE RATIO 44.4 (5.4-32.0); CHLORIDE 96 MMOL/L (99-107); CREATININE 0.81 MG/DL (0.60-1.10); GLUCOSE 177 MG/DL (70-104); SODIUM 135 MMOL/L (135-145); TOTAL CARBON DIOXIDE 32.9 MMOL/L (24-32); TOTAL PROTEIN 6.2 G/DL (6.4-8.2); eGFR > 90 ML/MIN
[2019-07-12 03:00] LABS: BASOPHILS # (AUTO) 0.1 X10'3 (0-0.2); BASOPHILS % (AUTO) 0.6 % (0-1); EOSINOPHILS % (AUTO) 0 % (0-6); HEMATOCRIT 43.5 % (42.0-52.0); HEMOGLOBIN 14.8 g/dl (14.0-17.9); LYMPHOCYTES % (AUTO) 10.3 % (21-51); MEAN CORPUSCULAR HEMOGLOBIN 30.5 PG (27.0-31.0); MEAN CORPUSCULAR HGB CONC 34.1 g/dL (33.0-36.5); MEAN CORPUSCULAR VOLUME 89.5 FL (78-98); MEAN PLATELET VOLUME 7.9 FL (7.4-10.4); MONOCYTES # (AUTO) 1.1 X10'3 (0-0.9); MONOCYTES % (AUTO) 5.9 % (2-12); NEUTROPHILS # (AUTO) 16.1 X10'3 (1.8-7.7); NEUTROPHILS % (AUTO) 83.2 % (42-75); PLATELET COUNT 263 X10'3 (140-440); RED BLOOD COUNT 4.86 X10'6 (4.70-6.10); RED CELL DISTRIBUTION WIDTH 13.9 % (11.5-14.5); WHITE BLOOD COUNT 19.3 X10'3 (4.5-11.0)
[2019-07-12] MEDS: ipratropium/albuterol 3ml nebule NEB SCH ×4 (03:18→20:22)
[2019-07-12 06:18] LABS: TOTAL CELLS COUNTED 100
[2019-07-12 06:20] LABS: LARGE PLATELETS FEW; PLATELET ESTIMATE NORMAL; POLYCHROMASIA 1+; STOMATOCYTES 1+
--- NOTE | 2019-07-12 06:32 | NUR ---
Patient in room ICU 2042. I have received report from SAMARIA Stone and had the opportunity to ask questions and assume patient care.
[2019-07-12] MEDS: lactobacillus rhamnosus 10,000 MMU CELLS/CAPSULE PO SCH ×2 (07:41→19:13)
[2019-07-12] MEDS: heparin, porcine 5000 units/ml vial SQ SCH ×2 (07:41→19:12)
[2019-07-12] MEDS: levoTHYROXINE 125mcg tablet PO SCH (07:41)
[2019-07-12] MEDS: metoprolol succinate 25mg (24-HOUR) SR. Tablet PO SCH (07:41)
[2019-07-12] MEDS: famotidine/PF 10 mg/ml inj IV SCH ×2 (07:41→19:13)
[2019-07-12] MEDS: tamsulosin 0.4mg capsule PO SCH (07:42)
[2019-07-12] MEDS: LIOthyronine 25mcg tablet PO SCH (07:42)
[2019-07-12] MEDS: docusate sod 100mg capsule PO SCH ×2 (07:42→19:13)
[2019-07-12] MEDS: budesonide 0.5mg/2ml UD nebule IH SCH ×2 (08:33→20:22)
[2019-07-12] MEDS: insulin Lispro (HumaLOG) vial - multi-dose SQ SCH ×3 (08:56→19:11)
--- NOTE | 2019-07-12 12:44 | NUR ---
Called report to SAMARIA Chacon
--- NOTE | 2019-07-12 13:00 | NUR ---
Patient in room PCU 3023. I have received report from Annie MERA, ICU and had the opportunity to ask questions and assume patient care.
--- NOTE | 2019-07-12 13:17 | NUR ---
Pt transferred to PCU via beri bed. Pt alert, oriented and stable for transfer. Has all belongings including cpap machine. Receiving RN at bedside
--- NOTE | 2019-07-12 13:20 | NUR ---
Pt transfered to U room 3023B. Pt alert/oriented and stable. Oriented Pt to room and call light
[2019-07-12] MEDS: HYDROcodone/acetaminophen 5mg/325mg tablet PO PRN (17:38)
--- NOTE | 2019-07-12 18:20 | NUR ---
Problems reprioritized. Patient report given, questions answered & plan of care reviewed with Bryanna MERA.
--- NOTE | 2019-07-12 18:22 | NUR ---
Patient in room PCU 3023. I have received report from Oswaldo MERA and had the opportunity to ask questions and assume patient care.
[2019-07-12] MEDS: ondansetron/PF 4mg/2ml inj IV PRN (20:15)
[2019-07-12] MEDS: atorvastatin 10mg tablet PO SCH (21:57)
[2019-07-12] MEDS: sennosides/docusate sodium tablet PO SCH (21:57)
[2019-07-12] MEDS: insulin glargine (Lantus) pen - multi-dose SQ SCH (22:02)
[2019-07-12] MEDS: HYDROcodone/acetaminophen 10/325mg tab PO PRN (22:10)
--- NOTE | 2019-07-12 23:58 | NUR ---
Patient refused 2200 vital signs
[2019-07-13] VITALS (7 sets, daily range): BP systolic 94–145; BP diastolic 66–88
[2019-07-13] MEDS: methylPREDNISolone sod succ/PF 40mg inj. IV SCH ×4 (02:02→20:17)
[2019-07-13] MEDS: ipratropium/albuterol 3ml nebule NEB SCH ×4 (02:14→21:03)
[2019-07-13 04:12] LABS: BASOPHILS # (AUTO) 0.1 X10'3 (0-0.2); BASOPHILS % (AUTO) 0.4 % (0-1); EOSINOPHILS % (AUTO) 0.1 % (0-6); HEMATOCRIT 43.3 % (42.0-52.0); HEMOGLOBIN 14.8 g/dl (14.0-17.9); LYMPHOCYTES # (AUTO) 1.8 X10'3 (1.1-4.8); LYMPHOCYTES % (AUTO) 7.3 % (21-51); MEAN CORPUSCULAR HEMOGLOBIN 30.7 PG (27.0-31.0); MEAN CORPUSCULAR HGB CONC 34.3 g/dL (33.0-36.5); MEAN CORPUSCULAR VOLUME 89.6 FL (78-98); MEAN PLATELET VOLUME 7.6 FL (7.4-10.4); MONOCYTES # (AUTO) 1.2 X10'3 (0-0.9); MONOCYTES % (AUTO) 5.2 % (2-12); NEUTROPHILS # (AUTO) 20.9 X10'3 (1.8-7.7); PLATELET COUNT 292 X10'3 (140-440); RED BLOOD COUNT 4.83 X10'6 (4.70-6.10); RED CELL DISTRIBUTION WIDTH 14.2 % (11.5-14.5); WHITE BLOOD COUNT 24.1 X10'3 (4.5-11.0)
[2019-07-13 04:29] LABS: ALANINE AMINOTRANSFERASE 115 U/L (12-78); ALBUMIN 2.7 G/DL (3.4-5.0); ALBUMIN/GLOBULIN RATIO 0.8 (1.1-1.5); ALKALINE PHOSPHATASE 82 IU/L (46-116); ANION GAP 5 (8-16); ASPARTATE AMINO TRANSFERASE 30 U/L (10-37); BILIRUBIN,TOTAL 0.9 MG/DL (0.1-1.0); BLOOD UREA NITROGEN 36 MG/DL (7-18); BUN/CREATININE RATIO 39.6 (5.4-32.0); CALCIUM 8.6 MG/DL (8.5-10.1); CHLORIDE 96 MMOL/L (99-107); CREATININE 0.91 MG/DL (0.60-1.10); GLUCOSE 169 MG/DL (70-104); MAGNESIUM 1.9 MG/DL (1.5-2.4); PHOSPHORUS 4.3 MG/DL (2.3-4.5); POTASSIUM 4.7 MMOL/L (3.5-5.1); SODIUM 135 MMOL/L (135-145); TOTAL CARBON DIOXIDE 33.8 MMOL/L (24-32); TOTAL PROTEIN 5.9 G/DL (6.4-8.2); eGFR 90 ML/MIN
--- NOTE | 2019-07-13 06:09 | NUR ---
Problems reprioritized. Patient report given, questions answered & plan of care reviewed with Adriana MERA.
--- NOTE | 2019-07-13 06:16 | NUR ---
Patient in room PCU 3023. I have received report from SAMARIA Gould and had the opportunity to ask questions and assume patient care.
[2019-07-13 06:59] LABS: ANISOCYTOSIS 1+; PLATELET ESTIMATE NORMAL; POLYCHROMASIA FEW; TOTAL CELLS COUNTED 100
[2019-07-13] MEDS: ondansetron/PF 4mg/2ml inj IV PRN ×2 (07:18→21:44)
[2019-07-13] MEDS: levoTHYROXINE 125mcg tablet PO SCH (07:36)
[2019-07-13] MEDS: heparin, porcine 5000 units/ml vial SQ SCH ×2 (07:36→20:19)
[2019-07-13] MEDS: famotidine/PF 10 mg/ml inj IV SCH ×2 (07:36→20:17)
[2019-07-13] MEDS: lactobacillus rhamnosus 10,000 MMU CELLS/CAPSULE PO SCH ×2 (07:36→20:19)
[2019-07-13] MEDS: docusate sod 100mg capsule PO SCH ×2 (07:37→20:19)
[2019-07-13] MEDS: LIOthyronine 25mcg tablet PO SCH (07:37)
[2019-07-13] MEDS: tamsulosin 0.4mg capsule PO SCH (07:37)
[2019-07-13] MEDS: metoprolol succinate 25mg (24-HOUR) SR. Tablet PO SCH (07:38)
[2019-07-13] MEDS: budesonide 0.5mg/2ml UD nebule IH SCH ×2 (08:00→21:03)
--- NOTE | 2019-07-13 09:18 | NUR ---
Messaged pharmacy re missing Humalog.
[2019-07-13] MEDS: insulin Lispro (HumaLOG) vial - multi-dose SQ SCH ×2 (15:01→19:12)
[2019-07-13] MEDS: HYDROcodone/acetaminophen 10/325mg tab PO PRN (15:05)
--- NOTE | 2019-07-13 15:23 | NUR ---
reassessment: Pt PO 50-75% avg carb controlled meals yesterday up from 0% prior. 134kg bed scale wt correct wt changing nutrient needs. LBM 07/07 receiving senna and colace routinely. Pt seen by RD for written/verbal DM ed w/ RD contact information provided. Pt declines verbal review; written ed and RD card left at bedside. 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 Will continue to monitor for additional protein needs. Recommendation: 1. Diet advancement to Heart Healthy and Carb controlled diet as medically indicated per SP/MD 2. routine bowel care 3. monitor for additional protein/ONS needs 4. weekly wts Addendum: 07/13/19 at [address] Amended: Links added.
--- NOTE | 2019-07-13 18:00 | NUR ---
Patient in room PCU 3023. I have received report from Adriana MERA and had the opportunity to ask questions and assume patient care.
--- NOTE | 2019-07-13 18:48 | NUR ---
Problems reprioritized. Patient report given, questions answered & plan of care reviewed with SAMARIA Bullard.
[2019-07-13] MEDS: sennosides/docusate sodium tablet PO SCH (20:19)
[2019-07-13] MEDS: atorvastatin 10mg tablet PO SCH (20:19)
[2019-07-13] MEDS: insulin glargine (Lantus) pen - multi-dose SQ SCH (21:34)
[2019-07-14] MEDS: methylPREDNISolone sod succ/PF 40mg inj. IV SCH ×4 (01:53→20:17)
[2019-07-14] MEDS: ipratropium/albuterol 3ml nebule NEB SCH ×4 (03:01→21:13)
[2019-07-14 05:24] LABS: BASOPHILS % (AUTO) 0.1 % (0-1); EOSINOPHILS % (AUTO) 0.1 % (0-6); HEMATOCRIT 42.7 % (42.0-52.0); HEMOGLOBIN 14.5 g/dl (14.0-17.9); LYMPHOCYTES # (AUTO) 1.5 X10'3 (1.1-4.8); MEAN CORPUSCULAR HEMOGLOBIN 30.6 PG (27.0-31.0); MEAN CORPUSCULAR HGB CONC 33.9 g/dL (33.0-36.5); MEAN CORPUSCULAR VOLUME 90.4 FL (78-98); MONOCYTES # (AUTO) 0.8 X10'3 (0-0.9); MONOCYTES % (AUTO) 3.4 % (2-12); NEUTROPHILS # (AUTO) 22.6 X10'3 (1.8-7.7); NEUTROPHILS % (AUTO) 90.4 % (42-75); PLATELET COUNT 285 X10'3 (140-440); RED BLOOD COUNT 4.72 X10'6 (4.70-6.10); RED CELL DISTRIBUTION WIDTH 14.1 % (11.5-14.5)
[2019-07-14 05:45] LABS: ALANINE AMINOTRANSFERASE 81 U/L (12-78); ALBUMIN 2.7 G/DL (3.4-5.0); ALBUMIN/GLOBULIN RATIO 0.9 (1.1-1.5); ALKALINE PHOSPHATASE 79 IU/L (46-116); ANION GAP 7 (8-16); ASPARTATE AMINO TRANSFERASE 16 U/L (10-37); BILIRUBIN,TOTAL 0.8 MG/DL (0.1-1.0); BLOOD UREA NITROGEN 33 MG/DL (7-18); BUN/CREATININE RATIO 38.8 (5.4-32.0); CALCIUM 8.5 MG/DL (8.5-10.1); CHLORIDE 96 MMOL/L (99-107); CREATININE 0.85 MG/DL (0.60-1.10); GLUCOSE 188 MG/DL (70-104); MAGNESIUM 1.8 MG/DL (1.5-2.4); PHOSPHORUS 3.6 MG/DL (2.3-4.5); POTASSIUM 4.5 MMOL/L (3.5-5.1); SODIUM 133 MMOL/L (135-145); TOTAL CARBON DIOXIDE 29.9 MMOL/L (24-32); TOTAL PROTEIN 5.8 G/DL (6.4-8.2); eGFR > 90 ML/MIN
--- NOTE | 2019-07-14 06:24 | NUR ---
Problems reprioritized. Patient report given, questions answered & plan of care reviewed with Kaykay MERA and Neli MERA.
--- NOTE | 2019-07-14 06:39 | NUR ---
Patient in room PCU 3023. I have received report from SAMARIA Bullard and had the opportunity to ask questions and assume patient care.
--- NOTE | 2019-07-14 06:41 | NUR ---
Patient in room PCU 3023. I have received report from Aleah MERA and had the opportunity to ask questions and assume patient care. Patient asleep in bed. On CPAP. In no acute distress. Will continue to monitor.
[2019-07-14 07:00] VITALS: BP 118/71
[2019-07-14] MEDS: famotidine/PF 10 mg/ml inj IV SCH ×2 (07:55→20:18)
[2019-07-14] MEDS: tamsulosin 0.4mg capsule PO SCH (07:55)
[2019-07-14] MEDS: lactobacillus rhamnosus 10,000 MMU CELLS/CAPSULE PO SCH ×2 (07:55→20:18)
[2019-07-14] MEDS: docusate sod 100mg capsule PO SCH ×2 (07:56→20:18)
[2019-07-14] MEDS: heparin, porcine 5000 units/ml vial SQ SCH ×2 (07:56→20:18)
[2019-07-14] MEDS: levoTHYROXINE 125mcg tablet PO SCH (07:56)
[2019-07-14] MEDS: ondansetron/PF 4mg/2ml inj IV PRN (07:57)
[2019-07-14] MEDS: budesonide 0.5mg/2ml UD nebule IH SCH ×2 (08:00→21:12)
[2019-07-14] MEDS: metoprolol succinate 25mg (24-HOUR) SR. Tablet PO SCH (08:16)
[2019-07-14] MEDS: insulin Lispro (HumaLOG) vial - multi-dose SQ SCH ×3 (08:20→19:16)
[2019-07-14 09:36] LABS: PLATELET ESTIMATE NORMAL; TOTAL CELLS COUNTED 100
[2019-07-14 09:37] LABS: ANISOCYTOSIS FEW; POLYCHROMASIA FEW
[2019-07-14 09:38] LABS: TOXIC GRANULATION 1+
[2019-07-14 11:00] VITALS: BP 115/68
[2019-07-14] MEDS: LIOthyronine 25mcg tablet PO SCH (12:45)
[2019-07-14 15:00] VITALS: BP 99/74
[2019-07-14] MEDS: HYDROcodone/acetaminophen 10/325mg tab PO PRN (15:52)
[2019-07-14] MEDS: vancomycin/NS 1 GM ADD-VANTAGE 250 ML IV SCH ×2 (17:17→20:18)
--- NOTE | 2019-07-14 18:26 | NUR ---
Problems reprioritized. Patient report given, questions answered & plan of care reviewed with SAMARIA Bullard.
--- NOTE | 2019-07-14 18:27 | NUR ---
Problems reprioritized. Patient report given, questions answered & plan of care reviewed with Aleah MERA. Patient stable at transfer of care.
[2019-07-14 19:00] VITALS: BP 109/68
[2019-07-14] MEDS: sennosides/docusate sodium tablet PO SCH (20:18)
[2019-07-14] MEDS: atorvastatin 10mg tablet PO SCH (20:18)
[2019-07-14] MEDS: insulin glargine (Lantus) pen - multi-dose SQ SCH (21:39)
[2019-07-14 23:00] VITALS: BP 111/68
[2019-07-15] MEDS: methylPREDNISolone sod succ/PF 40mg inj. IV SCH ×3 (01:50→14:20)
[2019-07-15] MEDS: ipratropium/albuterol 3ml nebule NEB SCH ×4 (02:53→21:01)
[2019-07-15 05:11] LABS: BASOPHILS % (AUTO) 0.2 % (0-1); EOSINOPHILS # (AUTO) 0.1 X10'3 (0-0.9); EOSINOPHILS % (AUTO) 0.2 % (0-6); HEMATOCRIT 41.5 % (42.0-52.0); LYMPHOCYTES % (AUTO) 3.5 % (21-51); MEAN CORPUSCULAR HGB CONC 33.6 g/dL (33.0-36.5); MEAN CORPUSCULAR VOLUME 89.3 FL (78-98); MONOCYTES # (AUTO) 0.6 X10'3 (0-0.9); MONOCYTES % (AUTO) 2.2 % (2-12); NEUTROPHILS % (AUTO) 93.9 % (42-75); PLATELET COUNT 288 X10'3 (140-440); RED BLOOD COUNT 4.65 X10'6 (4.70-6.10); RED CELL DISTRIBUTION WIDTH 14.4 % (11.5-14.5)
[2019-07-15 05:27] LABS: WHITE BLOOD COUNT 27.6 X10'3 (4.5-11.0)
[2019-07-15 05:43] LABS: ALANINE AMINOTRANSFERASE 65 U/L (12-78); ALBUMIN 2.8 G/DL (3.4-5.0); ALBUMIN/GLOBULIN RATIO 0.9 (1.1-1.5); ALKALINE PHOSPHATASE 78 IU/L (46-116); ANION GAP 7 (8-16); ASPARTATE AMINO TRANSFERASE 27 U/L (10-37); BILIRUBIN,TOTAL 0.6 MG/DL (0.1-1.0); BLOOD UREA NITROGEN 33 MG/DL (7-18); BUN/CREATININE RATIO 35.1 (5.4-32.0); CALCIUM 8.6 MG/DL (8.5-10.1); CHLORIDE 96 MMOL/L (99-107); CREATININE 0.94 MG/DL (0.60-1.10); GLUCOSE 158 MG/DL (70-104); MAGNESIUM 1.7 MG/DL (1.5-2.4); PHOSPHORUS 3.5 MG/DL (2.3-4.5); POTASSIUM 4.1 MMOL/L (3.5-5.1); SODIUM 131 MMOL/L (135-145); TOTAL CARBON DIOXIDE 27.8 MMOL/L (24-32); TOTAL PROTEIN 5.9 G/DL (6.4-8.2); TRIGLYCERIDES 201 MG/DL (20-135); eGFR 86 ML/MIN
--- NOTE | 2019-07-15 06:00 | NUR ---
Problems reprioritized. Patient report given, questions answered & plan of care reviewed with Kaykay MERA and Neli MERA.
--- NOTE | 2019-07-15 06:17 | NUR ---
Patient in room PCU 3023. I have received report from SAMARIA Monk and had the opportunity to ask questions and assume patient care.
--- NOTE | 2019-07-15 06:30 | NUR ---
Patient in room PCU 3023. I have received report from Harika MERA and had the opportunity to ask questions and assume patient care. Patient asleep in bed on CPAP. All immediate needs met at this time.
[2019-07-15 06:44] LABS: PLATELET ESTIMATE NORMAL; TOTAL CELLS COUNTED 100
[2019-07-15 06:45] LABS: POLYCHROMASIA FEW
[2019-07-15 07:00] VITALS: BP 148/58
[2019-07-15] MEDS: tamsulosin 0.4mg capsule PO SCH (07:40)
[2019-07-15] MEDS: levoTHYROXINE 125mcg tablet PO SCH (07:41)
[2019-07-15] MEDS: docusate sod 100mg capsule PO SCH ×2 (07:41→20:55)
[2019-07-15] MEDS: lactobacillus rhamnosus 10,000 MMU CELLS/CAPSULE PO SCH ×2 (07:41→20:55)
[2019-07-15] MEDS: heparin, porcine 5000 units/ml vial SQ SCH ×2 (07:41→20:58)
[2019-07-15] MEDS: famotidine/PF 10 mg/ml inj IV SCH ×2 (07:41→20:55)
[2019-07-15] MEDS: metoprolol succinate 25mg (24-HOUR) SR. Tablet PO SCH (07:42)
[2019-07-15] MEDS: budesonide 0.5mg/2ml UD nebule IH SCH ×2 (08:00→21:01)
[2019-07-15] MEDS: LIOthyronine 25mcg tablet PO SCH (09:50)
[2019-07-15] MEDS: insulin Lispro (HumaLOG) vial - multi-dose SQ SCH ×3 (09:59→19:19)
[2019-07-15 11:00] VITALS: BP 122/70
[2019-07-15 15:00] VITALS: BP 122/76
--- NOTE | 2019-07-15 15:29 | NUR ---
Problems reprioritized. Patient report given, questions answered & plan of care reviewed with Suzanne MERA. Patient stable at transfer of care.
[2019-07-15] MEDS ORDERED: levoFLOXACIN 500mg tablet PO SCH (15:35)
--- NOTE | 2019-07-15 16:55 | NUR ---
Pagecirilo Son with a RR for pts increase in temp, HR, and RR PAGER ID: [phone] MESSAGE: [id number]: Pati Hernandez: FYI: Called [facility]. Pt has a fever of 103 axillary, RR 30, HR 152, 93%. Pt not as responsive as this morning, -MANDO Quinteros
[2019-07-15] MEDS: TESTOSTERONE CYPIONATE 200 MG/ML VIAL IM SCH (17:08)
--- NOTE | 2019-07-15 18:06 | NUR ---
Patient in room PCU 3023. I have received report from Suzanne MERA and had the opportunity to ask questions and assume patient care.
--- NOTE | 2019-07-15 18:32 | NUR ---
Problems reprioritized. Patient report given, questions answered & plan of care reviewed with SAMARIA Bullard.
--- NOTE | 2019-07-15 18:42 | NUR ---
Orientee documentation: I have reviewed and agree with all interventions, assessments performed and documented by Neli MERA. Student Medication Administration: For this medication-pass time frame, all medication were reviewed, dispensed, administered and documented per hospital policy by Neli MERA.
[2019-07-15 19:00] VITALS: BP 122/68
[2019-07-15] MEDS: atorvastatin 10mg tablet PO SCH (20:55)
[2019-07-15] MEDS: sennosides/docusate sodium tablet PO SCH (20:56)
[2019-07-15] MEDS: insulin glargine (Lantus) pen - multi-dose SQ SCH (21:55)
[2019-07-15 23:00] VITALS: BP 117/74
[2019-07-16] MEDS: HYDROcodone/acetaminophen 5mg/325mg tablet PO PRN (01:01)
[2019-07-16] MEDS: ipratropium/albuterol 3ml nebule NEB SCH ×2 (02:53→08:12)
--- NOTE | 2019-07-16 06:10 | NUR ---
Patient in room PCU 3023. I have received report from SAMARIA Bullard and had the opportunity to ask questions and assume patient care.
--- NOTE | 2019-07-16 06:13 | NUR ---
Problems reprioritized. Patient report given, questions answered & plan of care reviewed with Suzanne MERA.
[2019-07-16 06:59] VITALS: BP 120/74
[2019-07-16] MEDS ORDERED: VANCOMYCIN LEVEL IV ONE (07:30)
[2019-07-16] MEDS: budesonide 0.5mg/2ml UD nebule IH SCH (08:13)
[2019-07-16] MEDS: levoTHYROXINE 125mcg tablet PO SCH (08:16)
[2019-07-16] MEDS: metoprolol succinate 25mg (24-HOUR) SR. Tablet PO SCH (08:17)
[2019-07-16] MEDS: lactobacillus rhamnosus 10,000 MMU CELLS/CAPSULE PO SCH (08:17)
[2019-07-16] MEDS: tamsulosin 0.4mg capsule PO SCH (08:17)
[2019-07-16] MEDS: famotidine/PF 10 mg/ml inj IV SCH (08:18)
[2019-07-16] MEDS: docusate sod 100mg capsule PO SCH (08:18)
[2019-07-16] MEDS: heparin, porcine 5000 units/ml vial SQ SCH (08:19)
[2019-07-16] MEDS: insulin Lispro (HumaLOG) vial - multi-dose SQ SCH (08:22)
[2019-07-16] MEDS: LIOthyronine 25mcg tablet PO SCH (08:34)
[2019-07-16 09:29] LABS: BASOPHILS # (AUTO) 0.2 X10'3 (0-0.2); BASOPHILS % (AUTO) 0.8 % (0-1); EOSINOPHILS # (AUTO) 0.1 X10'3 (0-0.9); EOSINOPHILS % (AUTO) 0.5 % (0-6); HEMATOCRIT 40.4 % (42.0-52.0); HEMOGLOBIN 13.7 g/dl (14.0-17.9); LYMPHOCYTES % (AUTO) 19.3 % (21-51); MEAN CORPUSCULAR HEMOGLOBIN 30.9 PG (27.0-31.0); MEAN CORPUSCULAR HGB CONC 33.8 g/dL (33.0-36.5); MEAN CORPUSCULAR VOLUME 91.4 FL (78-98); MEAN PLATELET VOLUME 9.1 FL (7.4-10.4); MONOCYTES # (AUTO) 1.2 X10'3 (0-0.9); MONOCYTES % (AUTO) 5.9 % (2-12); NEUTROPHILS # (AUTO) 15.3 X10'3 (1.8-7.7); NEUTROPHILS % (AUTO) 73.5 % (42-75); PLATELET COUNT 151 X10'3 (140-440); RED BLOOD COUNT 4.42 X10'6 (4.70-6.10); RED CELL DISTRIBUTION WIDTH 14.6 % (11.5-14.5); WHITE BLOOD COUNT 20.7 X10'3 (4.5-11.0)
[2019-07-16 10:02] LABS: ALANINE AMINOTRANSFERASE 78 U/L (12-78); ALBUMIN 2.8 G/DL (3.4-5.0); ALKALINE PHOSPHATASE 75 IU/L (46-116); ANION GAP 11 (8-16); ASPARTATE AMINO TRANSFERASE 42 U/L (10-37); BILIRUBIN,TOTAL 0.5 MG/DL (0.1-1.0); BLOOD UREA NITROGEN 28 MG/DL (7-18); BUN/CREATININE RATIO 31.1 (5.4-32.0); CALCIUM 8.3 MG/DL (8.5-10.1); CHLORIDE 98 MMOL/L (99-107); GLUCOSE 201 MG/DL (70-104); MAGNESIUM 1.6 MG/DL (1.5-2.4); PHOSPHORUS 2.9 MG/DL (2.3-4.5); SODIUM 133 MMOL/L (135-145); TOTAL CARBON DIOXIDE 24.4 MMOL/L (24-32); TOTAL PROTEIN 5.7 G/DL (6.4-8.2); VANCOMYCIN,TROUGH 16.5 UG/ML (6.0-14.0); eGFR > 90 ML/MIN
[2019-07-16 10:04] LABS: POTASSIUM 3.9 MMOL/L (3.5-5.1)
--- NOTE | 2019-07-16 10:04 | NUR ---
Patient stated he wanted to leave, called and spoke to Dr. Jenkins. Per MD, patient not safe for discharge due to increased WBCs and increased heart rate with activity. Relayed information to patient, patient made decision to leave AMA. Form signed by patient. Ext PIV removed from left forearm, catheter intact. Tele monitor removed and returned to television anchor. Patient transported to [facility] via wheel chair by staff.
[2019-07-16 10:52] LABS: PLATELET ESTIMATE NORMAL; TOTAL CELLS COUNTED 100
[2019-07-16 10:53] LABS: POLYCHROMASIA FEW
== END 2019-07-16 10:11 | disposition left against medical advice (07) | DRG 208 ==
LOC: CICU 2S 17:28 → ICU 2S 07-09 16:07 → PCU 3S 07-12 13:05
PROVIDERS: ADMIT Internal Medicine Critical Care Medicine; ATTEND Internal Medicine Critical Care Medicine
PROC: 5A1945Z Respiratory Ventilation, 24-96 Consecutive Hours (ICD-10-PCS; principal; 2019-07-07)
PROC: 0BH17EZ Insertion of Endotracheal Airway into Trachea, Via Natural or Artificial Opening (ICD-10-PCS; 2019-07-07)
PROC: B32T1ZZ Computerized Tomography (CT Scan) of Left Pulmonary Artery using Low Osmolar Contrast (ICD-10-PCS; 2019-07-07)
PROC: B3201ZZ Computerized Tomography (CT Scan) of Thoracic Aorta using Low Osmolar Contrast (ICD-10-PCS; 2019-07-07)
PROC: B32S1ZZ Computerized Tomography (CT Scan) of Right Pulmonary Artery using Low Osmolar Contrast (ICD-10-PCS; 2019-07-07)
PROC: 5A09457 Assistance with Respiratory Ventilation, 24-96 Consecutive Hours, Continuous Positive Airway Pressure (ICD-10-PCS; 2019-07-09)
PROC: 5A09357 Assistance with Respiratory Ventilation, Less than 24 Consecutive Hours, Continuous Positive Airway Pressure (ICD-10-PCS; 2019-07-13)
PROC: 5A09357 Assistance with Respiratory Ventilation, Less than 24 Consecutive Hours, Continuous Positive Airway Pressure (ICD-10-PCS; 2019-07-14)
PROC: 5A09357 Assistance with Respiratory Ventilation, Less than 24 Consecutive Hours, Continuous Positive Airway Pressure (ICD-10-PCS; 2019-07-15)
DX: J96.20 Acute and chronic respiratory failure, unspecified whether with hypoxia or hypercapnia (principal); J18.9 Pneumonia, unspecified organism; E66.2 Morbid (severe) obesity with alveolar hypoventilation; Z68.42 Body mass index [BMI] 45.0-49.9, adult; J44.0 Chronic obstructive pulmonary disease with (acute) lower respiratory infection; Z53.29 Procedure and treatment not carried out because of patient's decision for other reasons; E06.3 Autoimmune thyroiditis; E11.9 Type 2 diabetes mellitus without complications; Z87.891 Personal history of nicotine dependence; Z88.5 Allergy status to narcotic agent; Z90.49 Acquired absence of other specified parts of digestive tract
CPT/HCPCS: 36415; 36600; 71045; 71275; 76937; 80053; 80202; 81001; 82803; 82810; 82948; 83036; 83605; 83735; 84100; 84134; 84145; 84402; 84443; 84478; 85018; 85025; 85610; 85730; 87040; 87070; 87077; 87081; 87186; 92508; 92616; 94002; 94003; 94640; 94660; 94760; 97110; 97112; 97116; 97161; 97530; 97535; 97542; G0378; J0456; J0696; J0780; J1644; J1815; J2250; J2405; J2704; J2920; J2930; J3010; J3370; J3490; J7626; Q9967; Z7610